=== PATIENT | female | born 1930 | race Caucasian/White ===

== ENCOUNTER 2019-11-09 10:36 | Emergency (ER) | payer OTHER, MEDICARE ==
[~2019-11-09] VITALS: Ht 152.4 cm; Wt 61.2 kg
[2019-11-09] MEDS ORDERED: ALBUTEROL2.5 MG/31 INH (11:21)
[2019-11-09] MEDS ORDERED: OYSTER SHELL 51 EACH PO (11:22)
[2019-11-09] MEDS ORDERED: LIPITOR40 MG PO (11:22)
[2019-11-09] MEDS ORDERED: ELIQUIS2.5 MG PO (11:22)
[2019-11-09] MEDS ORDERED: REFRESH CELLUVI1 APP OPHTHALMIC (11:23)
[2019-11-09] MEDS ORDERED: TRAMADOL 50 MG50 MG PO ×2 (11:23)
[2019-11-09] MEDS ORDERED: CELEBREX100 MG/1 C PO (11:24)
[2019-11-09] MEDS ORDERED: CENTRUM SILVER1 EAC5 PO (11:24)
[2019-11-09] MEDS ORDERED: CARDIZEM SR 60M60 MG PO (11:24)
[2019-11-09] MEDS ORDERED: COMBIGAN EYE DR10 ML OPHTHALMIC (11:26)
[2019-11-09] MEDS ORDERED: DORZOLAMIDE 2%10 ML OPHTHALMIC (11:26)
[2019-11-09] MEDS ORDERED: LEVO-T50 MCG PO (11:27)
[2019-11-09] MEDS ORDERED: NEURONTIN 300M300 M2 PO (11:27)
[2019-11-09] MEDS ORDERED: LOTEMAX3.5 GM OPHTHALMIC (11:27)
[2019-11-09] MEDS ORDERED: FISH OIL 1,001000 M3 PO (11:28)
[2019-11-09] MEDS ORDERED: RAYOS5 MG PO (11:28)
[2019-11-09] MEDS ORDERED: PROTONIX40 M3 PO (11:29)
[2019-11-09] MEDS ORDERED: PRESERVISION L1 EACH PO (11:29)
[2019-11-09 11:41] LABS: ABSOLUTE NEUTROPHILS 6.3 thou/uL (1.4-8.2); BASOPHILS 0.9 % (0.0-2.0); EOSINOPHILS 1.5 % (0.0-3.0); HEMOGLOBIN 13.5 gm/dL (12.0-15.0); LYMPHOCYTES 16.9 % (24.0-44.0); MCH 33.2 pg (26.0-34.0); MCHC 32.9 g/dL (28.0-37.0); MCV 100.9 fL (80.0-100.0); MONOCYTES 7.7 % (1.0-8.0); PLATELET COUNT 244 thou/uL (150-400); RBC 4.06 mil/uL (4.20-5.00); WBC 8.6 thou/uL (4.0-11.0)
[2019-11-09 11:46] LABS: ANION GAP 9 mmol/L (7-16); BUN 32 mg/dL (7-18); CALCIUM 9.5 mg/dL (8.5-10.1); CHLORIDE 107 mmol/L (98-107); CO2 26 mmol/L (21-32); CREATININE 1.3 mg/dL (0.6-1.0); GLUCOSE 158 mg/dL (74-106); POTASSIUM 4.3 mmol/L (3.5-5.1); SODIUM 142 mmol/L (136-145)
[2019-11-09 11:55] LABS: APTT 26.8 Seconds (24.5-32.8); PROTIME 10.3 Seconds (9.3-11.4)
[2019-11-09 11:56] LABS: SGOT 12 U/L (15-37); SGPT 21 U/L (30-65); TOTAL BILIRUBIN 0.5 mg/dL (<0.1-1.0); TOTAL PROTEIN 6.8 g/dL (6.4-8.2); TROPONIN-I <0.06 ng/mL (<0.06)
[2019-11-09 12:53] VITALS: BP 134/68
[2019-11-09] MEDS ORDERED: VALACYCLOVIR1000 MG PO (13:09)
[2019-11-09] MEDS ORDERED: DOUBLE ANTIBIOT14 G1 TOP (13:09)
[2019-11-09] MEDS ORDERED: ARTIFICIAL TEAR1510 OPHTHALMIC (13:09)
[2019-11-09] MEDS ORDERED: LUBRICANT EYE3.5 G2 OPHTHALMIC (13:09)
[2019-11-09] MEDS ORDERED: PREDNISONE 20 M20 M1 PO (13:09)
--- NOTE | 2019-11-09 13:51 | EKG ---
[place] [address] [facility] [place] [address] ELECTROCARDIOGRAM REPORT Name: AKLIE SARAH Room #: REG ANDRES Kennedy#: [id number] Admission: 11/09/19 Attend Phys: Discharge: Date of : [birth year] Report #: [id number] THIS REPORT FOR: //name[facility] ED Test Date: 2019-11-09 Test Time: 10:53:51 Pat Name: KALIE SARAH Department: Room: Gender: F [employer] Secretary: : 1930 Requested By: Bin Frazier Order Number: [id number] MD: Jonas Bianchi Measurements Intervals [place] Rate: 81 P: IN: QRS: 39 QRSD: 107 T: 31 QT: 394 QTc: 458 Interpretive Statements Atrial fibrillation Artifact in lead(s) I,II,aVR,aVL,aVF No previous ECG available for comparison Electronically Signed On 11-09-2019 13:50:35 PHOTOCOPY OPERATOR by Jonas Bianchi [email or web address] <ELECTRONICALLY SIGNED> By: Jonas Bianchi MD, [facility] 11/09/19 1350 1053 1053 Jonas Bianchi MD, FACC /EPI
== END 2019-11-09 15:03 | disposition home or self-care (01) ==
LOC: ER 10:36
PROVIDERS: Emergency Medicine
DX: S51.812A Laceration without foreign body of left forearm, initial encounter (principal); G51.0 Bell's palsy; Z88.0 Allergy status to penicillin; Z88.6 Allergy status to analgesic agent; Z88.8 Allergy status to other drugs, medicaments and biological substances; Z91.040 Latex allergy status; Z91.048 Other nonmedicinal substance allergy status; X58.XXXA Exposure to other specified factors, initial encounter; Y93.89 Activity, other specified; Y92.89 Other specified places as the place of occurrence of the external cause; Y99.8 Other external cause status